=== PATIENT | female | born 1985 | race Two or more races ===

== ENCOUNTER 2024-12-15 08:50 | Emergency (ER) | payer OTHER ==
[~2024-12-15] VITALS: Ht 165.1 cm; Wt 62.6 kg
[2024-12-15] MEDS ORDERED: MONTELUKAST SODIUM 10 MG TABLET PO ONE (09:45)
[2024-12-15] MEDS ORDERED: METHYLPREDNISOLONE SOD SUCC 40 MG VIAL IM ONE (09:45)
[2024-12-15] MEDS ORDERED: CEFTRIAXONE SODIUM 1,000 MG VIAL IM ONE (09:45)
[2024-12-15] MEDS ORDERED: LORATADINE 10 MG TABLET PO ONE (09:45)
[2024-12-15] MEDS ORDERED: BENZONATATE 200 MG CAPSULE PO ONE (09:45)
[2024-12-15] MEDS ORDERED: CEFTRIAXONE SODIUM 1,000 MG VIAL ONE (10:04)
[2024-12-15] MEDS ORDERED: METHYLPREDNISOLONE SOD SUCC 40 MG VIAL ONE (10:04)
[2024-12-15 10:55] LABS: HEMATOCRIT 38.9 % (36.0-45.00); HEMOGLOBIN 13.3 g/dL (12.0-15.00); MEAN CELL VOLUME 93.7 fL (80.00-100.00); MEAN CORPUSCULAR HGB CONC 34.2 g/dl (32.0-36.0); PLATELET COUNT 241 K/uL (150-450); RED BLOOD COUNT 4.15 M/uL (4.00-6.00); RED CELL DISTRIBUTION WIDTH 13.7 % (11.5-14.5)
[2024-12-15] MEDS ORDERED: BENZONATATE200 M1 PO (12:37)
[2024-12-15] MEDS ORDERED: MEDROLPACK PO (12:37)
[2024-12-15] MEDS ORDERED: SINGULAIR10 MG PO (12:37)
[2024-12-15] MEDS ORDERED: PEPCID AC20 MG PO (12:37)
[2024-12-15] MEDS ORDERED: AZITHROMYCIN500 MG PO (12:38)
== END 2024-12-15 13:07 | disposition home or self-care (01) ==
LOC: ER 08:51
PROVIDERS: General Practice
DX: U07.1 COVID-19 (principal)